=== PATIENT | female | born 1970 | race Caucasian/White ===

== ENCOUNTER 2019-06-18 10:17 | Emergency (ER) | payer SELFPAY ==
--- OUTSIDE RECORDS SUMMARY | 2019-06-18 10:27 | XMS REPORT | Continuity of Care Document ---
:1970 External Reference #:[id number] Author Name Manuelito Pederson (transmitted by agent of provider Sanjiv Segovia) Address [address] [place] [address] Care Team Providers Name Role Phone HCP given Care Team Information Internet Network Specialist Unavailable [facility] - Care Team Information Internet Network Specialist [phone] Gastroenterology Problems Active Problems Provider Date Tobacco user Manuelito Pederson Onset: 07/08/2010 Social History Type Date Description Comments Sex Unknown Tobacco Use Reviewed: 01/17/17 currently smokes 1/2 Pack Daily Smoking Status Reviewed: 09/06/18 currently smokes 1/2 Pack Daily ETOH Use Occassional Alcohol socially Tobacco Use Start: Unknown Patient is a current smoker, smokes every day Tobacco Use Start: Unknown Light tobacco smoker (10 or fewer cigarettes/day) Sun Exposure Uses sunscreen Seat Belt/Car Seat always uses seat belt Guns in Home No Smoke Alarms Yes smoke alarm Allergies, Adverse Reactions, Alerts Active Allergies Reaction Severity Comments Date No Known Drug Allergy 10/15/2009 Medications Active Medications SIG Qnty Indications Ordering Date Provider Metrogel-Vaginal one 70gm N76.0 Richard Grier, 09/10/2018 0.75% applicatorful, M.D. Gel intravaginally, once daily for 5 days (generic ok) Eucrisa apply a thin 60gm L30.1 Richard Grier, 06/28/2018 2% Ointment layer of the M.D. ointment to affected areas 2 times daily until resolved (sample) Ventolin HFA 2 puffs every 4 18units J20.9 Richard Grier, 01/17/2017 108(90Base) hours as needed M.D. mcg/Act Aerosol for cough, wheezing, sob Multivitamins 1 po Unknown 10/09/2013 Capsules Tums 2 tabs three Unknown 500mg Chewtabs times a day as needed Immunizations CPT Code Status Date Vaccine Lot # [id number] Given 05/30/2018 Influenza Virus Vaccine, Quadrivalent, Split, Preservative Free [id number] Given 06/20/2010 Pneumococcal Immunization [id number] 80555 Given 06/20/2010 Adacel or Boostrix, TDaP [id number] Refused 02/11/2016 Influenza Virus Vaccine, Quadrivalent, Split, Im Use U-Flu Refused 05/07/2015 Influenza,Unspecified Vital Signs Date Vital Result Comment 09/06/2018 9:14am BP Systolic 118 mmHg BP Diastolic 82 mmHg Height 65 inches 5'5" Weight 118.00 lb BMI (Body Mass Index) 19.6 kg/m2 06/28/2018 8:58am BP Systolic 110 mmHg BP Diastolic 80 mmHg Height 65 inches 5'5" Weight 117.00 lb BMI (Body Mass Index) 19.5 kg/m2 Results Description No Information Available Procedures Date Code Description Status 09/13/2018 [id number] Colonoscopy Completed 06/17/2009 [id number] Mammogram Completed Medical Devices Description No Information Available Encounters Description No Information Available Assessments Description No Information Available Plan of Treatment 10/11/2018 - Manuelito PedersonM85.80 Ot disrd of bone density and structure, unspecified siteFollow up:Keep up the good work!!! No evidence of osteopenia or osteoporosis on dexa Functional Status Description No Information Available Mental Status Description No Information Available Referrals Description No Information Available
--- OUTSIDE RECORDS SUMMARY | 2019-06-18 10:27 | XMS REPORT | Continuity of Care Document ---
:1970 External Reference #:[id number] Author Name Manuelito Pederson (transmitted by agent of provider Sanjiv Segovia) Address [address] [place] [address] Care Team Providers Name Role Phone HCP given Care Team Information Veterinary Assistant Unavailable [facility] - Care Team Information Veterinary Assistant [phone] Gastroenterology Problems Active Problems Provider Date Tobacco [...] CPT Code Status Date Vaccine Lot # [id number] Given 05/30/2018 Influenza Virus Vaccine, Quadrivalent, Split, Preservative Free 36935 Given 06/20/2010 Pneumococcal Immunization [id number] 38461 Given 06/20/2010 Adacel or Boostrix, TDaP [id number] Refused 02/11/2016 Influenza Virus Vaccine, Quadrivalent, Split, [...] Available Procedures Date Code Description Status 09/13/2018 [id number] Colonoscopy Completed 06/17/2009 [id number] Mammogram Completed Medical Devices Description No Information [...]
--- OUTSIDE RECORDS SUMMARY | 2019-06-18 10:27 | XMS REPORT | Continuity of Care Document ---
:1970 External Reference #:[id number] Author Name Manuelito Pederson (transmitted by agent of provider Sanjiv Segovia) Address [address] [place] [address] Care Team Providers Name Role Phone HCP given Care Team Information Physicist Astrophysics Unavailable [facility] - Care Team Information Physicist [employer] [phone] Gastroenterology Problems Active Problems Provider Date Tobacco [...] CPT Code Status Date Vaccine Lot # [id number] Given 05/30/2018 Influenza Virus Vaccine, Quadrivalent, Split, Preservative Free 14544 Given 06/20/2010 Pneumococcal Immunization [id number] [id number] Given 06/20/2010 Adacel or Boostrix, TDaP [id number] Refused 02/11/2016 Influenza Virus Vaccine, Quadrivalent, Split, [...] Available Procedures Date Code Description Status 09/13/2018 [id number] Colonoscopy Completed 06/17/2009 [id number] Mammogram Completed Medical Devices Description No Information [...]
[2019-06-18 11:16] VITALS: BP 137/83
--- NOTE | 2019-06-18 13:12 | UC ---
Dizzy HPI HPI Summary: SUDDEN ONSET OF DIZZINESS YESTERDAY WORSE WITH CHANGE IN POSITION AND HEAD MOVEMENT. SYMPTOMS RESOLVE RAPIDLY WHEN STILL. NO NAUSEA OR VOMITING. NO HEARING LOSS OR TINNITUS. NO INSTABILITY OF GAIT OR SPEECH DISTURBANCES. NO VISUAL DISTURBANCES. NO RECENT HEAD INJURY. IS RECOVERING FROM A RECENT URI/ BRONCHITIS. STATES TODAY SYMPTOMS ARE MUCH IMPROVED. - History Of Current Complaint Chief Complaint: UCGeneralIllness Stated Complaint: DIZZY, EAR PROBLEM Time Seen by Provider: 06/18/19 12:38 Hx Obtained From: Patient Onset/Duration: Sudden Onset, Still Present - BUT BETTER Severity Initially: Moderate Severity Currently: Mild Pain Intensity: 0 Pain Scale Used: 0-10 Numeric Character: Dizzy Aggravating Factor(s): Position Change Alleviating Factor(s): Rest Associated Signs And Symptoms: Negative: Nausea, Vomiting, Tinnitus, Chest Pain , SOB, Palpitations, Unsteady Gait, Visual Changes - Allergies/Home Medications Allergies/Adverse Reactions: Allergies Allergy/AdvReac Type Severity Reaction Status Date / Time No Known Allergies Allergy Verified 06/18/19 11:10 Home Medications: Home Medications NK [No Home Medications Reported] 06/18/19 [History Confirmed 06/18/19] PMH/Surg Hx/FS Hx/Imm Hx Previously Healthy: Yes - Surgical History Surgical History: None - Family History Known Family History: Positive: Non-Contributory - Social History Alcohol Use: Occasionally Substance Use Type: None Smoking Status (MU): Current Every Day Smoker Amount Used/How Often: 1/2 PPD Household Exposure Type: Cigarettes Review of Systems All Other Systems Reviewed And Are Negative: Yes Constitutional: Positive: Negative Skin: Positive: Negative Respiratory: Positive: Negative Cardiovascular: Positive: Negative Gastrointestinal: Positive: Negative Neurological/Mental Status: Positive: Other - DIZZY Physical Exam Triage Information Reviewed: Yes Appearance: Well-Appearing, No Pain Distress, Well-Nourished Vital Signs: Initial Vital Signs Temp 99.7 F 06/18/19 11:11 Pulse 70 06/18/19 11:11 Resp 18 06/18/19 11:11 BP 137/83 06/18/19 11:11 Pulse Ox 98 06/18/19 11:11 Vital Signs Reviewed: Yes Eyes: Positive: Conjunctiva Clear ENT: Positive: Hearing grossly normal, Pharynx normal, TMs normal Neck: Positive: Supple, Nontender, No Lymphadenopathy Respiratory Exam: Normal Cardiovascular Exam: Normal Abdomen Description: Positive: Soft Musculoskeletal: Positive: No Edema Neurological: Positive: Alert, Muscle Tone Normal, Other: - CN II-XII GROSSLY INTACT BILATERALLY. 5/5 STRENGTH. NO [place]STAGMUS. Psychological: Positive: Age Appropriate Behavior Skin: Negative: Rashes Dizzy Course/Dx - Course Course Of Treatment: PATIENT PRESENTING WITH DIZZINESS THAT STARTED YESTERDAY. STATES SHE FEELS SIGNIFICANTLY BETTER TODAY BUT SYMPTOMS NOT COMPLETELY RESOLVED. EXAM IS CONSISTENT WITH BPPV. HANDOUTS FOR MODIFIED DEL MANEUVER AND H[employer]-DAROFF MANEUVERS PROVIDED. IF HER SYMPTOMS ARE NOT IMPROVING OVER THE NEXT FEW DAYS SHE WILL GO DIRECTLY TO THE EMERGENCY ROOM FOR FURTHER EVALUATION. SHE HAS A MILD HEADACHE BUT DENIES ANY OTHER SYMPTOMS. NO WEAKNESS, NO PARESTHESIAS, NO LOSS OF BALANCE OR VISUAL DISTURBANCES. DISCUSSED WITH PATIENT TRANSFER TO THE ER TODAY FOR NEURO IMAGING POSTERIOR CVA CAN PRESENT WITH JUST DIZZINESS AND HEADACHE. PATIENT DECLINES. STATES SHE KNOWS THIS IS NOT A STROKE. I AGREE THAT IT IS MORE LIKELY TO BE A BENIGN CONDITION SUCH BPPV. AGAIN PATIENT WILL GO TO THE ER WITHOUT FAIL IF HER SYMPTOMS WORSEN. - Differential Dx/Diagnosis Provider Diagnosis: BPPV (benign paroxysmal positional vertigo) Discharge ED - Sign-Out/Discharge Documenting (check all that apply): Patient Departure All imaging exams completed and their final reports reviewed: No Studies - Discharge Plan Condition: Stable Disposition: HOME Patient Education Materials: Benign Paroxysmal Positional Vertigo (ED) Referrals: Naomi Gamboa PA [Primary Care Provider] - If Needed Additional Instructions: Benign paroxysmal positional vertigo (BPPV) - sometimes called benign positional vertigo, positional vertigo, postural vertigo, or simply vertigo, is probably the most commonly recognized cause of vertigo. It is most commonly attributed to calcium debris within the posterior semicircular canal (inner ear) , known as canalithiasis. Classically, patients describe a brief spinning sensation brought on when turning in bed or tilting the head backward to look up. The dizziness is quite brief, usually seconds, but less commonly it can last minutes. It may be severe enough to halt activity for this duration. Patients may experience nausea but rarely vomit. Ear pain, hearing loss, and tinnitus are absent. The natural history of BPPV is one of repeated, brief vertiginous episodes that are predictably provoked. BPPV can be treated by canalith repositioning maneuvers. HANDOUTS PROVIDED FOR MODIFIED DEL AND MICHELLE Lopez Disposition and Condition Condition: STABLE Disposition: Home
== END 2019-06-18 13:21 | disposition home or self-care (01) ==
LOC: UCEAST 10:17
DX: H81.10 Benign paroxysmal vertigo, unspecified ear (principal); F17.210 Nicotine dependence, cigarettes, uncomplicated
CPT/HCPCS: 99211; G0463